=== PATIENT | male | born 1955 | race Caucasian/White ===

== ENCOUNTER 2024-07-19 08:38 | Outpatient (CLI) | payer MEDICARE, SELFPAY ==
--- NOTE | ~2024-07-19 | CT_ITS ---
Clinical Indication: Lung nodule CT Scan of the Chest with Contrast: Technique: Contiguous sections were acquired throughout the chest after intravenous administration of 75 cc of Omnipaque 350. Dose reduction technique was used on this scan by utilizing automated exposu re control and iterative reconstruction technique. The dose-length product (DLP) was 184.69 mGy-cm. Findings: There is no evidence of any significant mediastinal, hilar or axillary lymphadenopathy. There is no f illing defect in the pulmonary arterial tree to suggest pulmonary embolus. There is no evidence of ao rtic dissection or aneurysm. There is no evidence of pleural or pericardial effusion. Probable subcentimeter groundglass nodule right lower lobe (axial image 85). Images through the upper abdomen reveal no abnormalities. Impression: Probable subcentimeter right lower lobe groundglass nodule, as above. Consider annual follow-up. Reviewed, dictated and finalized at [facility]. Impression: Probable subcentimeter right lower lobe groundglass nodule, as above. Consider annual follow-up.
--- OUTSIDE RECORDS SUMMARY | 2024-07-19 08:59 | XMS_ITS | Clinical Summary ---
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 Gender Identity Not on file Sexual Orientation Not on file Plan of Treatment Health Maintenance Due Date Last Done Comments Colorectal Cancer Screening Colonoscopy (10 Years) 1954 Hepatitis C 1972 DTaP, Tdap and Td Vaccines ( 1 - Tdap) 1973 Pneumococcal Vaccine: 50+ Ye ars (1 of 1 - PCV) 2004 Zoster Vaccines (1 of 2) 2004 Annual Medicare Wellness Visit 2019 COVID-19 Vaccine (2 - 2023-2 5 season) 2024 01/17/2024 RSV Immunization or 60+ Years (1 - 1-dose 75+ series) 2029 Meningococcal B Vaccine Aged Out No l onger eligible based on patient's age to complete this topic Meningococcal Vaccine Aged Out No carrington ligia eligible based on patient's age to complete this topic RSV Immunizations Under 20 Months Aged Out No longer eligible based on patient's age to complete this topic Insurance MEDICARE [facility] Care Teams Product Introduction Manager Relationship Specialty Start Date End Date Alfredo Stone DO [address] [place] [address] PCP - General FAMILY PRACTICE 02/25/24
--- OUTSIDE RECORDS SUMMARY | 2024-07-19 08:59 | XMS_ITS | Patient Health Record ---
Author Organization [facility] [place] Address [address] [place] [address] Care Team Providers Care Apartment Leasing Consultant Name Role Phone NO, PCP Primary Care Provider Unavailabl e Lexa, HERNANDEZ Unavailable [phone] SELF, REFERRAL Unavailable Unavailable Allergies No Known Allergies Reason For Referral No Information Problems Problem Type SNOMED Code ICD Code Onset Dates Problem Status W/U Status Risk Notes Problem Lower urinary tract symptoms due to benign prostatic hypertrophy (34910854317317) Enlarged prostate with lower urinary tract symptoms (N40.1) Active confirmed Problem Stricture of artery (77886041) 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) Active confirmed Problem Lower urinary tract symptoms due to benign prostatic hypertrophy (26373791250495) Benign localized hyperplasia of prostate with urinary retention (N40.1) Active confirmed Plan Of Treatment Pending Test Test Name Order Date CT : Pelvis with IV contrast 01/26/2021 Insurance Providers Payer Name Payer Address Payer Phone Subscriber Number Group Number Insured Name Patient Relationship to Insured Coverage Start Date Coverage End Date [employer] [address] [place] [address] [phone] [id number] OMAR ABRAHAM Self - patient is the insured [facility] [address] [place] [phone] [id number] PLAN G ESTELA OMAR Self - patient is the insured
[2024-07-19 09:03] LABS: Estimated Glomerular Filt Rate 55
== END 2024-07-19 08:39 | disposition home or self-care (01) ==
PROVIDERS: PCP Family Medicine; Visit Provider Family Medicine
DX: R91.8 Other nonspecific abnormal finding of lung field (principal)
CPT/HCPCS: 71260; Q9967